=== PATIENT | female | born 2000 ===

== ENCOUNTER 2020-12-30 22:25 | Observation (INO) | payer BC ==
[2020-12-31 00:13] LABS: Basophils # (A) 0.1 k/uL (0-0.2); Basophils % (A) 1 %; Eosinophils # (A) 0.2 k/uL (0-0.7); Eosinophils % (A) 2 %; HCT 41.4 % (34.0-46.0); HGB 13.8 gm/dL (11.4-16.0); Lymphocytes # (A) 1.9 k/uL (1.0-4.8); Lymphocytes % (A) 18 %; MCH 29.5 pg (25.0-35.0); MCHC 33.3 g/dL (31.0-37.0); MCV 88.7 fL (80.0-100.0); Mean Platelet Volume 7.7; Monocytes # (A) 0.7 k/uL (0-1.0); Monocytes % (A) 7 %; Neutrophils # (A) 7.3 k/uL (1.3-7.7); Neutrophils % (A) 70 %; Platelet Count 298 k/uL (150-450); RBC 4.66 m/uL (3.80-5.40); RDW 13.2 % (11.5-15.5); WBC 10.4 k/uL (4.0-11.0)
[2020-12-31 00:24] LABS: AST 18 U/L (14-36); African American GFR (CKD) >90 (>60 ml/min/1.73 sqM); Albumin 3.7 g/dL (3.5-5.0); Alkaline Phosphatase 75 U/L (38-126); Anion Gap 8 mmol/L; Blood Urea Nitrogen 13 mg/dL (7-17); Calcium 9.1 mg/dL (8.4-10.2); Carbon Dioxide 25 mmol/L (22-30); Chloride 103 mmol/L (98-107); Glucose 98 mg/dL (74-99); Non-African American GFR(CKD) >90 (>60 ml/min/1.73 sqM); Potassium 4.3 mmol/L (3.5-5.1); Sodium 136 mmol/L (137-145); Total Bilirubin 0.2 mg/dL (0.2-1.3); Total Protein 6.4 g/dL (6.3-8.2)
[2020-12-31 00:25] LABS: ALT 15 U/L (4-34); Lipase 50 U/L (23-300); Magnesium 2.1 mg/dL (1.6-2.3)
--- NOTE | 2020-12-31 00:38 | XR ---
EXAMINATION TYPE: XR chest 2V DATE OF EXAM: 12/31/2020 COMPARISON: NONE HISTORY: Chest pain TECHNIQUE: 2 views FINDINGS: Heart and mediastinum are normal. Lungs are clear of consolidation. There is some minimal b lunting left posterior costophrenic angle. There are no hilar masses. Bony thorax is intact. IMPRESSION: There is some mild pleural reaction left lung base. Normal heart.
[2020-12-31 01:28] LABS: INR 0.8 (<1.2); Prothrombin Time 9.4 sec (9.0-12.0)
[2020-12-31] MEDS ORDERED: KETOROLAC 15 MG/ML 1 ML VIAL IVP STA (01:42)
[2020-12-31] MEDS ORDERED: HYDROmorphone 0.5 MG/0.5 ML SYRINGE IVP STA ×2 (01:42→02:28)
--- NOTE | 2020-12-31 02:14 | ED ---
General Adult HPI - General Chief complaint: Chest Pain Stated complaint: chest pain, neck pain Time Seen by Provider: 12/30/20 23:28 Source: patient Mode of arrival: ambulatory - History of Present Illness Initial comments: 20 year-old female patient presents to the emergency department for evaluation of left sided chest pain, left upper back pain, and left arm pain with inspir ation. Patient has been having pain since Sunday night. States she was seen at an emergency department in [place], [place] and was diagnosed with pneumonia, started on Amoxicillin. States that her pain worsened, she feels short of breath, and she can barely take a breath in. She denies any fever or chills. Denies cough or congestion. Has not received COVID vaccination. States she was not tested for COVID at the other hospital. She denies any leg pain or swelling. Denies any car rides over 1.5 hours recently. No history of blood clots. She does take oral control. Denies tobacco use. Denies alcohol or drug use. Patient denies any recent rash, abdominal pain, nausea, vomiting, diarrhea, constipation, back pain, numbness, tingling, dizziness, weakness, hematuria, dysuria, urinary urgency, urinary frequency, headache, visual changes, or any other complaints. - Related Data Allergies Allergy/AdvReac Type Severity Reaction Status Date / Time No Known Allergies Allergy Verified 12/30/20 22:31 Review of Systems ROS Statement: Those systems with pertinent positive or pertinent negative responses have been documented in the HPI. ROS Other: All systems not noted in ROS Statement are negative. Past Medical History Additional Past Medical History / Comment(s): kidney reflux History of Any Multi-Drug Resistant Organisms: None Reported Additional Past Surgical History / Comment(s): kidney surgery at 8 Past Psychological History: Anxiety Smoking Status: Never smoker Past Alcohol Use History: Occasional Past Drug Use History: None Reported General Exam General appearance: alert, in no apparent distress, other (Physical well- developed, well-nourished adult female patient in mild distress related to pain. Vital signs upon presentation are temperature 97.7F, pulse 79, respirations 18, blood pressure 135/84, pulse ox 99% on room air.) ENT exam: Present: normal exam, normal oropharynx, mucous membranes moist Respiratory exam: Present: normal lung sounds bilaterally. Absent: respiratory distress, wheezes, rales, rhonchi, stridor Cardiovascular Exam: Present: regular rate, normal rhythm, normal heart sounds. Absent: systolic murmur, diastolic murmur, rubs, gallop, clicks GI/Abdominal exam: Present: soft, normal bowel sounds. Absent: distended, tenderness, guarding, rebound, rigid Neurological exam: Present: alert, oriented X3, CN II-XII intact Psychiatric exam: Present: normal affect, normal mood Skin exam: Present: warm, dry, intact, normal color. Absent: rash Course Vital Signs 12/30/20 22:26 Temperature 97.7 F Pulse Rate 79 Respiratory 18 Rate Blood Pressure 135/84 O2 Sat by Pulse 99 Oximetry EKG Findings - EKG Comments: EKG Findings:: EKG obtained at 2237 shows normal sinus rhythm with a ventricular rate of 91, IN interval 132, QR roman catholic 94, QT 350, QTC 4:30. No evidence of ST elevation or depression. Medical Decision Making - Medical Decision Making 20-year-old female patient presents to the emergency department today for evaluation of pain to the left upper chest, left upper back, and left arm with inspiration. Lungs are clear to auscultation. Vital signs or within acceptable ranges. Labs reviewed and did reveal d-dimer at 0.5 which is technically high for a patient of this age. WBC normal. She is not . Tested negative for COVID. Chest xray showed left lung pleural reaction with mild pulmonary effusion on the left. Patient was sent for CTA chest for PE, no evidence of PE was identified however did show left lower lobe pneumonia with small pleural effusion. After CT patient was in distress. Lying flat significantly worsened her pain, she was very anxious, unable to sit or lie down. Had severe pain when breathing in. She was given pain medication which improved symptoms somewhat. She will be started on antibiotics. Given dose of lovenox. US of bilateral lower extremities in the morning. Patient is agreeable with this plan. Case discussed with my attending Dr. Alba. - Lab Data Result diagrams: 12/30/20 00:06 12/30/20 00:06 Lab Results 12/30/20 12/30/20 12/30/20 Range/Units 00:06 00:06 00:06 WBC 10.4 (4.0-11.0) k/uL RBC 4.66 (3.80-5.40) m/uL Hgb 13.8 (11.4-16.0) gm/dL Hct 41.4 (34.0-46.0) % MCV 88.7 (80.0-100.0) fL MCH 29.5 (25.0-35.0) pg MCHC 33.3 (31.0-37.0) g/dL RDW 13.2 (11.5-15.5) % Plt Count 298 (150-450) k/uL MPV 7.7 Neutrophils % 70 % Lymphocytes % 18 % Monocytes % 7 % Eosinophils % 2 % Basophils % 1 % Neutrophils # 7.3 (1.3-7.7) k/uL Lymphocytes # 1.9 (1.0-4.8) k/uL Monocytes # 0.7 (0-1.0) k/uL Eosinophils # 0.2 (0-0.7) k/uL Basophils # 0.1 (0-0.2) k/uL PT 9.4 (9.0-12.0) sec INR 0.8 (<1.2) APTT 22.0 (22.0-30.0) sec D-Dimer 0.57 (<0.60) mg/L FEU Sodium 136 L (137-145) mmol/L Potassium 4.3 (3.5-5.1) mmol/L Chloride 103 (98-107) mmol/L Carbon Dioxide 25 (22-30) mmol/L Anion Gap 8 mmol/L BUN 13 (7-17) mg/dL Creatinine 0.71 (0.52-1.04) mg/dL Est GFR (CKD-EPI)AfAm >90 (>60 ml/min/1.73 sqM) Est GFR (CKD-EPI)NonAf >90 (>60 ml/min/1.73 sqM) Glucose 98 (74-99) mg/dL Calcium 9.1 (8.4-10.2) mg/dL Magnesium 2.1 (1.6-2.3) mg/dL Total Bilirubin 0.2 (0.2-1.3) mg/dL AST 18 (14-36) U/L ALT 15 (4-34) U/L Alkaline Phosphatase 75 (38-126) U/L Troponin I (0.000-0.034) ng/mL Total Protein 6.4 (6.3-8.2) g/dL Albumin 3.7 (3.5-5.0) g/dL Lipase 50 (23-300) U/L Urine HCG, Qual (Not Detectd) Coronavirus (PCR) (Not Detectd) 12/30/20 12/30/20 12/30/20 Range/Units 00:06 00:06 00:06 WBC (4.0-11.0) k/uL RBC (3.80-5.40) m/uL Hgb (11.4-16.0) gm/dL Hct (34.0-46.0) % MCV (80.0-100.0) fL MCH (25.0-35.0) pg MCHC (31.0-37.0) g/dL RDW (11.5-15.5) % Plt Count (150-450) k/uL MPV Neutrophils % % Lymphocytes % % Monocytes % % Eosinophils % % Basophils % % Neutrophils # (1.3-7.7) k/uL Lymphocytes # (1.0-4.8) k/uL Monocytes # (0-1.0) k/uL Eosinophils # (0-0.7) k/uL Basophils # (0-0.2) k/uL PT (9.0-12.0) sec INR (<1.2) APTT (22.0-30.0) sec D-Dimer (<0.60) mg/L FEU Sodium (137-145) mmol/L Potassium (3.5-5.1) mmol/L Chloride (98-107) mmol/L Carbon Dioxide (22-30) mmol/L Anion Gap mmol/L BUN (7-17) mg/dL Creatinine (0.52-1.04) mg/dL Est GFR (CKD-EPI)AfAm (>60 ml/min/1.73 sqM) Est GFR (CKD-EPI)NonAf (>60 ml/min/1.73 sqM) Glucose (74-99) mg/dL Calcium (8.4-10.2) mg/dL Magnesium (1.6-2.3) mg/dL Total Bilirubin (0.2-1.3) mg/dL AST (14-36) U/L ALT (4-34) U/L Alkaline Phosphatase (38-126) U/L Troponin I <0.012 (0.000-0.034) ng/mL Total Protein (6.3-8.2) g/dL Albumin (3.5-5.0) g/dL Lipase (23-300) U/L Urine HCG, Qual Not Detected (Not Detectd) Coronavirus (PCR) Not Detected (Not Detectd) - Radiology Data Radiology results: report reviewed, image reviewed Two-view x-ray of the chest is obtained. Report was reviewed in its entirety. Impression by Dr. Mccain shows mild pleural reaction left lung base. Normal heart CT chest angiography for pulmonary embolus was obtained. A [place] treatments entirety. Impression by Dr. Mccain shows no evidence of pulmonary embolism. Left lower lobe pneumonia with minimal left pleural effusion. Disposition Clinical Impression: Left lower lobe pneumonia, Chest pain, Dyspnea Disposition: ADMITTED IP TO THIS [facility] Condition: Serious Referrals: None,Stated [Primary Care Provider] - 1-2 days Decision to Admit Reason: Admit from EC Decision Date: 12/31/20 Decision Time: 02:46
--- NOTE | 2020-12-31 02:31 | CT ---
EXAMINATION TYPE: CT chest angio for PE DATE OF EXAM: 12/31/2020 COMPARISON: None HISTORY: R/O PE, Left Sided Chest Pain CT DLP: 395.10 mGycm Automated exposure control for dose reduction was used. CONTRAST: Performed with IV Contrast, patient injected with 70 mL of Isovue 370. There are 3-D post processed images. There is some mild interstitial and airspace infiltrate in the left lower lobe. There is small left p leural effusion. Heart size is normal. There is no pericardial effusion. There is no mediastinal chester opathy. There are no hilar masses. Thoracic aorta is intact. There is no aneurysm or dissection. There is no evidence of filling defect in the pulmonary arteries. The thoracic spine is intact. There is no compression fracture. Upper abdominal soft tissues appear i ntact. IMPRESSION: No evidence of pulmonary embolism. Left lower lobe pneumonia with minimal left pleural effusion.
[2020-12-31] MEDS ORDERED: NALOXONE 0.4 MG/ML 1 ML VIAL IV PRN (02:43)
[2020-12-31] MEDS ORDERED: ENOXAPARIN 100 MG/ML SYRINGE SQ ONE (03:00)
[2020-12-31] MEDS ORDERED: AZITHROMYCIN 500 MG in SODIUM CHLORIDE 0.9% 250 ML IVPB ONE (03:00)
[2020-12-31] MEDS: HYDROmorphone 0.5 MG/0.5 ML SYRINGE IVP PRN ×2 (05:51→08:53)
[2020-12-31 08:22] VITALS: BP 116/76; TEMP 98.3
--- NOTE | 2020-12-31 08:36 | US ---
EXAMINATION TYPE: US venous doppler duplex LE BI DATE OF EXAM: 12/31/2020 8:04 AM COMPARISON: NONE CLINICAL HISTORY: 20 year-old female rule out DVT, pain. Pneumonia, NO PE per CT chest. SIDE PERFORMED: Bilateral TECHNIQUE: The lower extremity deep venous system is examined utilizing real time linear array sonog isaias with graded compression, doppler sonography and color-flow sonography. FINDINGS: VESSELS IMAGED: Common Femoral Vein Deep Femoral Vein Greater Saphenous Vein * Femoral Vein Popliteal Vein Small Saphenous Vein * Proximal Calf Veins (* superficial vessels) Right Leg: Negative for DVT Left Leg: Negative for DVT Public [employer] Sanitarian Technician notes: Left groin lymph node was seen = 2.3 x 1.1 x 0.9cm IMPRESSION: 1. No evidence for DVT within the bilateral lower extremities. 2. Incidental borderline sized left groin lymph node measuring 1.1 cm short axis, probably reactive.
[2020-12-31] MEDS ORDERED: methylPREDNISolone SOD SUCCI 40 MG/ML 1 ML VIAL IV SCH (08:45)
--- NOTE | 2020-12-31 10:49 | P.CNPUL ---
History of Present Illness Consult date: 12/31/20 Requesting physician: Jennifer Holder Reason for consult: chest pain Chief complaint: Left sided chest pain History of present illness: 20-year-old white female patient with no significant medical history, presented to the emergency department on 12/30/2020 with complaints of left chest pain, which was traveling up her left upper back and left arm, with inspiration. Patient has been having pain since Sunday night. She [place] [facility] she was seen in the emergency department, she had a CT chest completed was diagnosed with pneumonia, started on amoxicillin. However her pain has worsened, she feels short of breath and she can barely take a breath in. She denied any fever or chills. Denied any cough or congestion, she has not received her Coumadin vaccination yet. She tested negative for 19 at this hospital. No leg swelling or pain, no hemoptysis. Denies tobacco use. No nausea vomiting or diarrhea. Chest x-ray in emergency department showed some pleural reaction at the left lung base. Lab work was reviewed showing normal CBC, normal white count of 10.4, hemoglobin 13.8, platelet count is 298, d-dimer was within normal limits at 0.57, the rest of the coag profile was within normal limits, renal profile and electrolytes were unremarkable, LFTs were within normal limits, lipase was 50, troponin was less than 0.012. CTA chest was completed showing no evidence of pulmonary embolism, and left lower lobe pneumonia with minimal left pleural effusion. Lower extremity Dopplers were negative for DVT. Patient was started on azithromycin and Rocephin, she received Toradol, and Dilaudid for pain relief. She is awake and alert, oriented 3, she has been afebrile since admission, she is 2 L of oxygen the pulse ox of 100%. Review of Systems All systems: negative Constitutional: Denies chills, Denies fever Eyes: denies blurred vision, denies pain Ears, nose, mouth and throat: Denies headache, Denies sore throat Cardiovascular: Reports chest pain, Denies shortness of breath Respiratory: Denies cough Gastrointestinal: Denies abdominal pain, Denies diarrhea, Denies nausea, Denies vomiting Genitourinary: Denies dysuria, Denies hematuria Musculoskeletal: Denies myalgias Integumentary: Denies pruritus, Denies rash Neurological: Denies numbness, Denies weakness Psychiatric: Denies anxiety, Denies depression Endocrine: Denies fatigue, Denies weight change Past Medical History Additional Past Medical History / Comment(s): kidney reflux History of Any Multi-Drug Resistant Organisms: None Reported Additional Past Surgical History / Comment(s): kidney surgery at 8, wisdom teeth removal 2019 Past Anesthesia/Blood Transfusion Reactions: No Reported Reaction Smoking Status: Never smoker - Past Family History Father Family Medical History: Cancer Additional Family Medical History / Comment(s): lung and bone cancer Medications and Allergies Home Medications Medication Instructions Recorded Confirmed Type Amoxicillin 500 mg PO Q8H 12/31/20 12/31/20 History Blisovi Fe 1-20 1 tab PO DAILY 12/31/20 12/31/20 History Cyclobenzaprine [Flexeril] 10 mg PO TID 12/31/20 12/31/20 History Allergies Allergy/AdvReac Type Severity Reaction Status Date / Time No Known Allergies Allergy Verified 12/31/20 06:43 Physical Exam Vitals: Vital Signs Temp Pulse Pulse Resp BP BP Pulse Ox 12/31/20 07:00 98.3 F 89 17 116/76 100 12/31/20 04:50 80 17 137/80 99 12/30/20 22:26 97.7 F 79 18 135/84 99 Intake and Output 12/30/20 12/31/20 12/31/20 22:59 06:59 14:59 Other: Weight 95.254 kg 95.254 kg GENERAL EXAM: Alert, very pleasant, 20-year-old white female, on 2 L of oxygen pulse ox 100% comfortable in no apparent distress. HEAD: Normocephalic/atraumatic. EYES: Normal reaction of pupils, equal size. Conjunctiva pink, sclera white. NOSE: Clear with pink turbinates. THROAT: No erythema or exudates. NECK: No masses, no JVD, no thyroid enlargement, no adenopathy. CHEST: No chest wall deformity. Symmetrical expansion. LUNGS: Equal air entry with no crackles, wheeze, rhonchi or dullness. CVS: Regular rate and rhythm, normal S1 and S2, no gallops, no murmurs, no rubs ABDOMEN: Soft, nontender. No hepatosplenomegaly, normal bowel sounds, no guarding or rigidity. EXTREMITIES: No clubbing, no edema, no cyanosis, 2+ pulses and upper and lower extremities. MUSCULOSKELETAL: Muscle strength and tone normal. SPINE: No scoliosis or deformity SKIN: No rashes CENTRAL NERVOUS SYSTEM: Alert and oriented -3. No focal deficits, tone is normal in all 4 extremities. PSYCHIATRIC: Alert and oriented -3. Appropriate affect. Intact judgment and insight. Results - Laboratory Findings CBC and BMP: 12/30/20 00:06 12/30/20 00:06 PT/INR, D-dimer PT 9.4 sec (9.0-12.0) 12/30/20 00:06 INR 0.8 (<1.2) 12/30/20 00:06 D-Dimer 0.57 mg/L FEU (<0.60) 12/30/20 00:06 Abnormal lab findings: Abnormal Labs 12/30/20 00:06 Sodium 136 L - Diagnostic Findings Chest x-ray: report reviewed, image reviewed CT scan - chest: report reviewed, image reviewed Additional studies: EKG reviewed Assessment and Plan Plan: Assessment: #1. Pleuritic chest pain related to left lower lobe pneumonia with small pleural effusion, community acquired. CTA chest showed no evidence of pulmonary embolism, lower extremity Dopplers were negative for DVT. COVID-19 PCR was negative. Patient was treated in outpatient basis with amoxicillin and muscle relaxant #2. Nonsmoker #3. Anxiety #4. History of renal reflux at age 8, with surgical intervention Plan: Continue current antibiotics We will add IV steroids 40 mg every 8 hours IV push Once the pleuritic chest pain is more controlled may consider for discharge home as long she remains stable We'll continue to follow I performed a history & physical examination of the patient and discussed their management with my nurse practitioner, Leonora Edmonds. I reviewed the nurse practitioner's note and agree with the documented findings and plan of care. Lung sounds are positive for diminished breath sounds. The findings and the im pression was discussed with the patient. I attest to the documentation by the nurse practitioner. Time with Patient: Greater than 30
[2020-12-31] MEDS ORDERED: CYCLOBENZAPRINE 10 MG TAB PO PRN (12:29)
[2020-12-31] MEDS ORDERED: BLISOVI FE PO SCH (12:30)
[2020-12-31 13:43] VITALS: RESP 16
[2020-12-31 13:44] VITALS: PULSE 96
--- NOTE | 2020-12-31 16:01 | P.HPIM ---
History of Present Illness H&P Date: 12/31/20 This is a pleasant 20-year-old female who was recently admitted with increasing shortness of breath and pain with inspiration that had been radiating to her back and brought to the emergency department by her family for further evaluation. She was seen in an outside facility and started on amoxicillin along with Flexeril and was camping and continued to get worse and became more dyspneic and extreme pain and was brought to the ER. Patient has a past medical history of kidney reflux with surgery at 8 years old and no other complications since then. Patient's primary care provider also her larriman helper is out of [place] Dr. Mcneil. Patient's chest x-ray was done in the ER showing some mild pleural reaction in the left lung base with lungs are clear of any consolidation. Patient was started on IV steroids along with ceftriaxone and Zithromax. Patient was also placed on 2 L of oxygen via nasal cannula. Patient underwent CTA of the chest with no evidence of pulmonary embolism and left lower lobe pneumonia with minimal left pleural effusion noted. Patient also underwent bilateral lower extremity venous Doppler which was negative for DVT. Patient was afebrile and white blood count was 10.4 on admission. D-dimer was negative at 0.57. COVID-19 was negative as well and other basic labs within normal limits. Patient was admitted for pulmonary evaluation and will await pulmonary consult. Review of Systems Constitutional: Reports fatigue Ears, nose, mouth and throat: Denies headache, Denies sore throat Cardiovascular: Reports shortness of breath Respiratory: Reports dyspnea, Reports pain on inspiration Gastrointestinal: Denies abdominal pain, Denies diarrhea, Denies nausea, Denies vomiting Genitourinary: Denies dysuria, Denies hematuria Musculoskeletal: Reports myalgias Integumentary: Denies pruritus, Denies rash Neurological: Denies numbness, Denies weakness Psychiatric: Reports anxiety Endocrine: Denies fatigue, Denies weight change Past Medical History Additional Past Medical History / Comment(s): kidney reflux History of Any Multi-Drug Resistant Organisms: None Reported Additional Past Surgical History / Comment(s): kidney surgery at 8, wisdom teeth removal 2019 Past Anesthesia/Blood Transfusion Reactions: No Reported Reaction Smoking Status: Never smoker - Past Family History Father Family Medical History: Cancer Additional Family Medical History / Comment(s): lung and bone cancer Medications and Allergies Home Medications Medication Instructions Recorded Confirmed Type Albuterol Inhaler [Ventolin Hfa 1 puff INHALATION RT-QID 30 Days 12/31/20 Rx Inhaler] #1 each Azithromycin [Zithromax] 500 mg PO DAILY 3 Days #3 tab 12/31/20 Rx Blisovi Fe 1-20 1 tab PO DAILY 12/31/20 12/31/20 History Cefuroxime Axetil [Ceftin] 500 mg PO BID 6 Days #12 tab 12/31/20 Rx Cyclobenzaprine [Flexeril] 10 mg PO TID #12 tab 12/31/20 Rx Ibuprofen [Motrin] 800 mg PO Q8H #30 tab 12/31/20 Rx methylPREDNISolone Dose Pack 4 mg PO DIRECTED #21 package 12/31/20 Rx [Medrol Dose Pack] Allergies Allergy/AdvReac Type Severity Reaction Status Date / Time No Known Allergies Allergy Verified 12/31/20 06:43 Physical Exam Vitals: Vital Signs Temp Pulse Pulse Resp BP BP Pulse Ox 12/31/20 07:00 98.3 F 89 17 116/76 100 12/31/20 04:50 80 17 137/80 99 12/30/20 22:26 97.7 F 79 18 135/84 99 Intake and Output 12/30/20 12/31/20 12/31/20 22:59 06:59 14:59 Other: Weight 95.254 kg 95.254 kg Gen: This is a 20-year-old female awake, alert and oriented 3, well-developed, well-nourished. HEENT: Head is atraumatic, normocephalic. Pupils equal, round. Sclerae is anicteric. NECK: Supple. No JVD. No lymphadenopathy. No thyromegaly. LUNGS: Diminished breath sounds bilaterally with no wheezing or rhonchi noted. No intercostal retractions. HEART: Regular rate and rhythm. No murmur. ABDOMEN: Soft. Bowel sounds are present. No masses. No tenderness. EXTREMITIES: No pedal edema. No calf tenderness. NEUROLOGICAL: Patient is awake, alert and oriented x3. Cranial nerves 2 through 12 are grossly intact. Results CBC & Chem 7: 12/30/20 00:06 12/30/20 00:06 Labs: Abnormal Lab Results - Last 24 Hours (Table) 12/30/20 Range/Units 00:06 Sodium 136 L (137-145) mmol/L Thrombosis Risk Factor Assmnt - DVT/VTE Prophylaxis DVT/VTE Prophylaxis: Pharmacologic Prophylaxis ordered, Low risk, early ambulation encouraged Assessment and Plan Assessment: Shortness of breath secondary to left lower lobe pneumonia Pain on inspiration secondary to above anxiety History of kidney reflux with surgical intervention at 8 years of age GI prophylaxis DVT prophylaxis Full code Plan: Patient was started on IV steroids and pulmonary consult and patient was continued on 2 L of oxygen via nasal cannula with 100% oxygen saturation. Discussed with nursing staff about weaning FiO2 and evaluating oxygen saturation at rest along with walking on room air. Incentive spirometer ordered and patient encouraged to continue 10 times every hour while awake. Patient was started on IV ceftriaxone along with IV Zithromax and will continue. Flexeril as needed for the back pain and will add Motrin. Encourage the patient increase ambulation as tolerated. CTA was negative for pulmonary embolism along with bilateral venous Dopplers were negative for DVT. We'll continue to monitor closely. Time with Patient: Greater than 30
--- NOTE | 2020-12-31 16:08 | P.DS ---
Providers Date of admission: 12/31/20 03:38 Expected date of discharge: 12/31/20 Attending physician: Luis Ramirez MD Consults: 12/31/20 03:00 Consult Physician Stat Consulting Provider: Hector García Consult Reason/Comments: Left lung pneumonia; r/o PE Do you want consulting provider notified?: Yes Primary care physician: Stated None Hospital Course: Final diagnosis Shortness of breath secondary to left lower lobe pneumonia Pain on inspiration secondary to above anxiety History of kidney reflux with surgical intervention at 8 years of age GI prophylaxis DVT prophylaxis Full code Discharge disposition Patient is being discharged in a stable condition with guarded prognosis to home. Patient will follow-up with Dr. Mcneil her primary care provider out of sync with srinivasan in the outpatient setting upon discharge. Patient is to follow-up with pulmonary outpatient. Patient will continue on oral Ceftin 500 mg twice daily for the next 6 days along with oral Zithromax 3 days to complete the course. Will give an inhaler and instructed to use with increasing shortness of breath. Total time taken is greater than 35 minutes. Hospital course This is a pleasant 20-year-old female who was recently admitted with increasing shortness of breath and pain with inspiration that had been radiating to her back and brought to the emergency department by her family for further evaluation. She was seen in an outside facility and started on amoxicillin along with Flexeril and was camping and continued to get worse and became more dyspneic and extreme pain and was brought to the ER. Patient has a past medical history of kidney reflux with surgery at 8 years old and no other complications since then. Patient's primary care provider also her advance scout is out of [place] Dr. Mcneil. Patient's chest x-ray was done in the ER showing some mild pleural reaction in the left lung base with lungs are clear of any consolidation. Patient was started on IV steroids along with ceftriaxone and Zithromax. Patient was also placed on 2 L of oxygen via nasal cannula. Patient underwent CTA of the chest with no evidence of pulmonary embolism and left lower lobe pneumonia with minimal left pleural effusion noted. Patient also underwent bilateral lower extremity venous Doppler which was negative for DVT. Patient was afebrile and white blood count was 10.4 on admission. D-dimer was negative at 0.57. COVID-19 was negative as well and other basic labs within normal limits. Patient was admitted for pulmonary evaluation and will await pulmonary consult. 12/31/2020 Patient was seen and evaluated in follow-up and feeling better and will be discharged home on oral Ceftin along with oral Zithromax and an inhaler and a Medrol Dosepak and instructed to follow-up with her primary care provider upon discharge. Pulmonary evaluated the patient and was started on IV steroids and patient is not having any significant wheezing noted. Patient will also be provided with an inhaler as needed for shortness of breath. Patient to continue with anti-inflammatories and encouraged incentive spirometer use along with fluids and rest and monitoring closely for any fevers or worsening shortness of breath. Patient instructed to follow-up with primary care provider on discharge as well. Gen: This is a 20-year-old female awake, alert and oriented 3, well-developed, well-nourished. HEENT: Head is atraumatic, normocephalic. Pupils equal, round. Sclerae is anicteric. NECK: Supple. No JVD. No lymphadenopathy. No thyromegaly. LUNGS: Diminished breath sounds bilaterally with no wheezing or rhonchi noted. No intercostal retractions. HEART: Regular rate and rhythm. No murmur. ABDOMEN: Soft. Bowel sounds are present. No masses. No tenderness. EXTREMITIES: No pedal edema. No calf tenderness. NEUROLOGICAL: Patient is awake, alert and oriented x3. Cranial nerves 2 through 12 are grossly intact. Currently no reports of chest pain, worsening shortness of breath, or palpitations. Patient is afebrile. No reports of nausea or vomiting and patient is tolerating diet. Patient will be discharged home today. On exam vital signs are stable. Cardio S1, S2 are muffled. Respiratory system shows diminished breath sounds at the bases with no wheezing or rhonchi noted. Abdomen is soft and nontender. Nervous system shows no focal deficits. Please refer to medication reconciliation sheet for a list of medications. Patient Condition at Discharge: Stable Plan - Discharge Summary New Discharge Prescriptions: New Cefuroxime Axetil [Ceftin] 500 mg PO BID 6 Days #12 tab methylPREDNISolone Dose Pack [Medrol Dose Pack] 4 mg PO DIRECTED #21 package Ibuprofen [Motrin] 800 mg PO Q8H #30 tab Albuterol Inhaler [Ventolin Hfa Inhaler] 1 puff INHALATION RT-QID 30 Days #1 each Azithromycin [Zithromax] 500 mg PO DAILY 3 Days #3 tab Continue Cyclobenzaprine [Flexeril] 10 mg PO TID #12 tab Blisovi Fe 1-20 1 tab PO DAILY Discontinued Amoxicillin 500 mg PO Q8H Discharge Medication List Albuterol Inhaler [Ventolin Hfa Inhaler] 1 puff INHALATION RT-QID 30 Days #1 each 12/31/20 [Rx] Azithromycin [Zithromax] 500 mg PO DAILY 3 Days #3 tab 12/31/20 [Rx] Blisovi Fe 1-20 1 tab PO DAILY 12/31/20 [History] Cefuroxime Axetil [Ceftin] 500 mg PO BID 6 Days #12 tab 12/31/20 [Rx] Cyclobenzaprine [Flexeril] 10 mg PO TID #12 tab 12/31/20 [Rx] Ibuprofen [Motrin] 800 mg PO Q8H #30 tab 12/31/20 [Rx] methylPREDNISolone Dose Pack [Medrol Dose Pack] 4 mg PO DIRECTED #21 package 12/31/20 [Rx] Follow up Appointment(s)/Referral(s): Hector García MD [STAFF PHYSICIAN] - 1 Week Patient Instructions/Handouts: Chest Pain (DC), Viral Pneumonia (DC), Dyspnea (DC) Activity/Diet/Wound Care/Special Instructions: Activity limited until follow up follow up with primary care provider Continue with antibiotics until finished Continue with Medrol Dosepak as directed Continue current diet Follow-up with pulmonary outpatient Continue with incentive spirometer at least 10 times every hour while awake. Discharge Disposition: HOME SELF-CARE
[2021-01-01] MEDS ORDERED: AZITHROMYCIN 500 MG in SODIUM CHLORIDE 0.9% 250 ML IVPB SCH ×2 (06:00→09:00)
== END 2020-12-31 14:44 | disposition home or self-care (01) ==
LOC: EC 22:25 → 6NMEDSUR 12-31 03:38
PROVIDERS: ADMIT Internal Medicine; ATTEND Internal Medicine
DX: J18.1 Lobar pneumonia, unspecified organism (principal); F41.9 Anxiety disorder, unspecified; R79.89 Other specified abnormal findings of blood chemistry; Z20.822 Contact with and (suspected) exposure to COVID-19; Z79.3 Long term (current) use of hormonal contraceptives; Z87.448 Personal history of other diseases of urinary system; Z98.890 Other specified postprocedural states; Z80.1 Family history of malignant neoplasm of trachea, bronchus and lung; Z80.8 Family history of malignant neoplasm of other organs or systems
CPT/HCPCS: 96376 ×2; 96375 ×2; 96365; 96367; 96372; 99285; 36415; 93005; 85379; 80053; 85652; 83690; 83735; 84484; 85025; 85610; 85730; 81025; 84145; 87635; 71046; 93970; 71275; G0378; J2920; J0456; J1650; J0696; J1885; J1170; Q9967

== ENCOUNTER 2021-02-08 07:01 | Emergency (ER) | payer BC ==
[2021-02-08 07:06] VITALS: TEMP 98.3
[2021-02-08] MEDS ORDERED: KETOROLAC 15 MG/ML 1 ML VIAL IVP STA (07:17)
[2021-02-08] MEDS ORDERED: methylPREDNISolone SOD SUCCI 125 MG/2 ML VIAL IV STA (07:17)
--- NOTE | 2021-02-08 07:19 | ED ---
Chest Pain HPI - General Chief Complaint: Chest Pain Stated Complaint: Chest pain Time Seen by Provider: 02/08/21 07:06 Source: patient, family, RN notes reviewed Mode of arrival: ambulatory Limitations: no limitations - History of Present Illness Initial Comments: This is a 20-year-old female presents emergency department chief complaint of left-sided chest discomfort. Patient states this started on Sunday has slightly worsened. Patient states that she was recently admitted over a month ago for similar complaints when she is from and pneumonia she states she feels exactly the same she does have increased cough congestion. Patient denies any abdominal complaints only pain no leg swelling states that she's felt slightly achy no reported fever denies any smoking history. No sick contacts. - Related Data Home Medications Medication Instructions Recorded Confirmed Blisovi Fe 1-20 1 tab PO HS 12/31/20 02/08/21 Previous Rx's Medication Instructions Recorded Amoxicillin/Potassium Clav 1 tab PO Q12HR #20 tab 02/08/21 [Augmentin 875-125 Tablet] predniSONE 50 mg PO DAILY #5 tab 02/08/21 Allergies Allergy/AdvReac Type Severity Reaction Status Date / Time No Known Allergies Allergy Verified 02/08/21 08:05 Review of Systems ROS Statement: Those systems with pertinent positive or pertinent negative responses have been documented in the HPI. ROS Other: All systems not noted in ROS Statement are negative. EKG Findings - EKG Comments: EKG Findings:: EKG performed at 8:07 normal sinus rhythm rate 99 LA 140 QRS 94 QT/ QTC 358/459 Past Medical History Additional Past Medical History / Comment(s): kidney reflux History of Any Multi-Drug Resistant Organisms: None Reported Additional Past Surgical History / Comment(s): kidney surgery at 8, wisdom teeth removal 2019 Past Anesthesia/Blood Transfusion Reactions: No Reported Reaction Past Psychological History: Anxiety Smoking Status: Never smoker Past Alcohol Use History: Occasional Past Drug Use History: None Reported - Past Family History Father Family Medical History: Cancer Additional Family Medical History / Comment(s): lung and bone cancer General Exam Limitations: no limitations General appearance: alert, in no apparent distress Head exam: Present: atraumatic, normocephalic, normal inspection Eye exam: Present: normal appearance, PERRL, EOMI. Absent: scleral icterus, conjunctival injection, periorbital swelling ENT exam: Present: normal exam, normal oropharynx, mucous membranes moist Neck exam: Present: normal inspection, full ROM. Absent: tenderness, meningismus, lymphadenopathy Respiratory exam: Present: normal lung sounds bilaterally. Absent: respiratory distress, wheezes, rales, rhonchi, stridor Cardiovascular Exam: Present: regular rate, normal rhythm, normal heart sounds. Absent: systolic murmur, diastolic murmur, rubs, gallop, clicks GI/Abdominal exam: Present: soft, normal bowel sounds. Absent: distended, tenderness, guarding, rebound, rigid Neurological exam: Present: alert Skin exam: Present: warm, dry, intact, normal color. Absent: rash Course Vital Signs 02/08/21 02/08/21 07:02 08:04 Temperature 98.3 F Pulse Rate 85 100 Respiratory 22 18 Rate Blood Pressure 134/90 133/86 O2 Sat by Pulse 100 100 Oximetry Chest Pain MDM - MDM X-ray shows low-lying lines, elevated diaphragm on the left, labs essentially unremarkable other than mild leukocytosis. Patient had similar complaints last month was treated for pneumonia in improved will be discharged on antibiotics return parameters were discussed. Disposition Clinical Impression: Chest wall pain, Pneumonia Disposition: HOME SELF-CARE Condition: Stable Instructions (If sedation given, give patient instructions): Chest Pain (ED) Additional Instructions: Please return to the Emergency Department if symptoms worsen or any other concerns. Prescriptions: Amoxicillin/Potassium Clav [Augmentin 875-125 Tablet] 1 tab PO Q12HR #20 tab predniSONE 50 mg PO DAILY #5 tab Is patient prescribed a controlled substance at d/c from ED?: No Referrals: Nonstaff,Physician [Primary Care Provider] - 1-2 days Hector García MD [STAFF PHYSICIAN] - 1-2 days Time of Disposition:
--- NOTE | 2021-02-08 08:01 | XR ---
EXAMINATION TYPE: XR chest 2V DATE OF EXAM: 02/08/2021 COMPARISON: Chest x-ray and CTA chest December 31, 2020 HISTORY: Chest pain and cough. TECHNIQUE: Frontal and lateral views of the chest are obtained. FINDINGS: There is no new suspicious focal air space opacity, pleural effusion, or pneumothorax seen . Improved aeration in the lung bases from prior. Slightly elevated left hemidiaphragm and low lung v olumes redemonstrated. The cardiac silhouette size is stable and within normal limits. The osseous structures are intact. IMPRESSION: No acute pulmonary process currently.
[2021-02-08 08:06] VITALS: RESP 18
[2021-02-08] MEDS ORDERED: HYDROmorphone 1 MG/ML 1 ML SYRINGE IVP STA (08:12)
[2021-02-08] MEDS ORDERED: ONDANSETRON 4 MG/2 ML VIAL IVP STA (08:12)
[2021-02-08 08:14] LABS: Basophils # (A) 0.1 k/uL (0-0.2); Basophils % (A) 0 %; Eosinophils # (A) 0.3 k/uL (0-0.7); Eosinophils % (A) 2 %; HCT 43.1 % (34.0-46.0); HGB 14.6 gm/dL (11.4-16.0); Lymphocytes # (A) 1.7 k/uL (1.0-4.8); Lymphocytes % (A) 13 %; MCH 29.7 pg (25.0-35.0); MCHC 33.9 g/dL (31.0-37.0); MCV 87.5 fL (80.0-100.0); Mean Platelet Volume 7.1; Monocytes # (A) 0.8 k/uL (0-1.0); Monocytes % (A) 6 %; Neutrophils # (A) 9.7 k/uL (1.3-7.7); Neutrophils % (A) 76 %; Platelet Count 287 k/uL (150-450); RBC 4.92 m/uL (3.80-5.40); RDW 13.3 % (11.5-15.5); WBC 12.7 k/uL (4.0-11.0)
[2021-02-08 08:27] LABS: ALT 18 U/L (4-34); AST 21 U/L (14-36); African American GFR (CKD) >90 (>60 ml/min/1.73 sqM); Albumin 3.9 g/dL (3.5-5.0); Alkaline Phosphatase 87 U/L (38-126); Anion Gap 9 mmol/L; Blood Urea Nitrogen 10 mg/dL (7-17); Calcium 9.2 mg/dL (8.4-10.2); Carbon Dioxide 21 mmol/L (22-30); Chloride 107 mmol/L (98-107); Glucose 92 mg/dL (74-99); Lipase 82 U/L (23-300); Magnesium 2.1 mg/dL (1.6-2.3); Non-African American GFR(CKD) >90 (>60 ml/min/1.73 sqM); Potassium 4.5 mmol/L (3.5-5.1); Sodium 137 mmol/L (137-145); Total Bilirubin 0.4 mg/dL (0.2-1.3); Total Protein 6.9 g/dL (6.3-8.2)
[2021-02-08] MEDS ORDERED: cefTRIAXone IN SWFI 1,000 MG/10 ML SYRINGE IVP STA (09:16)
[2021-02-08] MEDS ORDERED: ACET/COD 300 MG/30 MG STARTER PACK 6 TAB BTL PO STA (09:21)
[2021-02-08 09:33] VITALS: BP 126/88; PULSE 78
== END 2021-02-08 09:33 | disposition home or self-care (01) ==
LOC: EC 07:01
DX: R07.89 Other chest pain (principal); J18.9 Pneumonia, unspecified organism; F41.9 Anxiety disorder, unspecified
CPT/HCPCS: 99285; 96374; 96375 ×3; 36415; 80053; 83690; 83735; 84484; 85025; 87635; 71046; J2930; J2405; J1170; J1885

== ENCOUNTER 2021-03-07 12:14 | Emergency (ER) | payer BC ==
[2021-03-07 14:34] VITALS: BP 154/96; TEMP 98.4
--- NOTE | 2021-03-07 15:21 | XR ---
EXAMINATION TYPE: XR chest 2V DATE OF EXAM: 03/07/2021 COMPARISON: 02/08/2021 INDICATION: Shortness of breath TECHNIQUE: Frontal and lateral views of the chest are obtained. FINDINGS: The heart size is normal. The pulmonary vasculature is normal. The lungs are clear. IMPRESSION: 1. No acute pulmonary process.
[2021-03-07] MEDS ORDERED: KETOROLAC 15 MG/ML 1 ML VIAL IM STA (16:47)
--- NOTE | 2021-03-07 16:49 | ED ---
SOB HPI - General Chief Complaint: Shortness of Breath Stated Complaint: back, chest & neck pain Time Seen by Provider: 03/07/21 16:31 Source: patient, family, RN notes reviewed Mode of arrival: ambulatory Limitations: no limitations - History of Present Illness Initial Comments: Patient is a 20-year-old female that presents to emergency department comp laining of pain on deep inspiration. She notes that she's been diagnosed with pleurisy and pneumonia several times. She notes that nausea she was given amoxicillin and prednisone which seemed to help patient was she does have follow-up with [facility] on the of this month. She notes that the pain comes on suddenly without warning. She denied any aggravating or alleviating factors. She denied any headache nausea vomiting diarrhea constipation fever fatigue chills. She was otherwise well-appearing. - Related Data Home Medications Medication Instructions Recorded Confirmed Blisovi Fe 1-20 1 tab PO HS 12/31/20 02/08/21 Previous Rx's Medication Instructions Recorded Amoxicillin/Potassium Clav 1 tab PO Q12HR #20 tab 02/08/21 [Augmentin 875-125 Tablet] predniSONE 50 mg PO DAILY #5 tab 02/08/21 predniSONE 50 mg PO DAILY #5 tab 03/07/21 Allergies Allergy/AdvReac Type Severity Reaction Status Date / Time No Known Allergies Allergy Verified 03/07/21 14:34 Review of Systems ROS Statement: Those systems with pertinent positive or pertinent negative responses have been documented in the HPI. ROS Other: All systems not noted in ROS Statement are negative. Past Medical History Additional Past Medical History / Comment(s): kidney reflux History of Any Multi-Drug Resistant Organisms: None Reported Additional Past Surgical History / Comment(s): kidney surgery at 8, wisdom teeth removal 2019 Past Anesthesia/Blood Transfusion Reactions: No Reported Reaction Past Psychological History: Anxiety Smoking Status: Never smoker Past Alcohol Use History: Occasional Past Drug Use History: None Reported - Past Family History Father Family Medical History: Cancer Additional Family Medical History / Comment(s): lung and bone cancer General Exam Limitations: no limitations General appearance: alert, in no apparent distress, obese Head exam: Present: atraumatic, normocephalic, normal inspection Eye exam: Present: normal appearance, PERRL, EOMI. Absent: scleral icterus, conjunctival injection, periorbital swelling ENT exam: Present: normal exam, mucous membranes moist Neck exam: Present: normal inspection Respiratory exam: Present: normal lung sounds bilaterally. Absent: respiratory distress, wheezes, rales, rhonchi, stridor Cardiovascular Exam: Present: regular rate, normal rhythm, normal heart sounds. Absent: systolic murmur, diastolic murmur, rubs, gallop, clicks Neurological exam: Present: alert, oriented X3 Psychiatric exam: Present: normal affect, normal mood Skin exam: Present: warm, dry, intact, normal color. 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 Chest x-ray shows no acute card up on her process. Present is only sent to pharmacy. Patient is agreeable with this and will follow-up with [facility] as planned. 15 g of Toradol ordered for pain. Case discussed with Dr. Bueno, patient can discharge home with follow-up to primary care in [facility] as planned. - Radiology Data Radiology results: report reviewed, image reviewed Chest x-ray: Normal chest. Disposition Clinical Impression: Chest wall pain Disposition: HOME SELF-CARE Condition: Stable Instructions (If sedation given, give patient instructions): Chest Pain (ED) Additional Instructions: Please return to the Emergency Department if symptoms worsen or any other concerns. Follow-up with primary care 1-2 days per Follow-up with [facility] as planned. Take Motrin every 8 hours as needed for pain. Take steroids as prescribed. Is patient prescribed a controlled substance at d/c from ED?: No Referrals: Nonstaff,Physician [Primary Care Provider] - 1-2 days Time of Disposition: 16:48
[2021-03-07 16:56] VITALS: PULSE 84; RESP 16
== END 2021-03-07 16:56 | disposition home or self-care (01) ==
LOC: EC 12:14
DX: R07.89 Other chest pain (principal); R06.02 Shortness of breath; M54.2 Cervicalgia; R11.0 Nausea; F41.9 Anxiety disorder, unspecified
CPT/HCPCS: 71046; 99285; 96372; J1885